=== PATIENT | male | born 1945 | race Two or more races ===

== ENCOUNTER 2018-11-22 12:03 | Outpatient (CLI) | payer OTHER, BC ==
[~2018-11-22 12:03] MED LIST: ASA81 MG; CRESTOR40 MG; LEVSIN/SL0.125 MG SL; METOPROLOL TART50 MG; NEXIUM40 MG/PACK; PROTONIX40 MG PO
== END 2018-11-22 14:24 | disposition home or self-care (01) ==
LOC: MRI 12:03
DX: M25.512 Pain in left shoulder (principal); M25.551 Pain in right hip; M25.552 Pain in left hip
CPT/HCPCS: 73721

== ENCOUNTER 2020-10-20 12:54 | Outpatient (CLI) | payer OTHER | END 2020-10-20 13:11 | disposition home or self-care (01) | LOC: RAD 12:54 → MRI 13:15 | PROVIDERS: ATTEND Orthopaedic Surgery | DX: M71.22 Synovial cyst of popliteal space [Baker], left knee (principal); M25.562 Pain in left knee; M25.561 Pain in right knee | CPT/HCPCS: 73721 ==